=== PATIENT | male | born 1965 | race Caucasian/White ===

== ENCOUNTER 2018-01-07 08:27 | Emergency (ER) | payer OTHER ==
[~2018-01-07] VITALS: Ht 172.7 cm; Wt 121.0 kg
[2018-01-07 08:33] VITALS: BP 155/92
[2018-01-07] MEDS ORDERED: KETOROLAC 30 MG/1 ML ONE (09:20)
[2018-01-07] MEDS ORDERED: KETOROLAC 30 MG/1 ML IM ONE (09:30)
== END 2018-01-07 10:11 | disposition home or self-care (01) ==
LOC: ED 10:05
DX: S39.012A Strain of muscle, fascia and tendon of lower back, initial encounter (principal); W12.XXXA Fall on and from scaffolding, initial encounter; Y93.89 Activity, other specified; Y92.69 Other specified industrial and construction area as the place of occurrence of the external cause; Y99.0 Civilian activity done for income or pay
CPT/HCPCS: 72110; 96372; 99284; J1885